=== PATIENT | male | born 1985 | race African-American/Black ===

== ENCOUNTER 2019-03-29 09:30 | Emergency (ER) | payer SELFPAY ==
[~2019-03-29] VITALS: Ht 172.7 cm; Wt 77.1 kg
[2019-03-29 09:33] VITALS: BP 117/80
[2019-03-29] MEDS ORDERED: NKM (09:40)
--- NOTE | 2019-03-29 09:43 | NUR ---
ED Nurse Note: PT FROM HOME WALKED IN DUE TO ABD. PAIN WITH DIARRHEA AND N/V SINCE TUESDAY. NO RECENT WEIGHT LOSS. AAO X4, AMBULATORY WITH NO ACTIVE VOMITING UPON ARRIVAL.
--- NOTE | 2019-03-29 10:05 | Emergency Room Report ---
History of Present Illness General Chief Complaint: Abdominal Pain Source: Patient, Significant Other Present Illness HPI Patient presents with 3 days of diarrhea, abdominal cramps and vomiting. He has been able to keep down Gatorade. He feels he is not dehydrated this time. Before taking the children to school he had to move his bowels 3 times this morning. He has crampy pain in his abdomen and 6/10. He felt feverish but had no documented fever. Denies vomiting blood or blood in the diarrhea. He thinks he might of eaten something unusual. His significant other is not ill. No upper respiratory symptoms. 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 Nursing Documentation: PMH: Agreed; PSxH: Agreed Nursing Documentation-PMH Past Medical History: No Stated History Review of Systems All Other Systems: negative except mentioned in HPI Physical Exam Vital Signs Date Time Temp Pulse Resp B/P (MAP) Pulse Ox O2 Delivery O2 Flow Rate FiO2 03/29/19 09:33 98.1 65 16 117/80 (92) 99 Room Air Sp02 EP Interpretation: reviewed, normal General Appearance: well appearing, no apparent distress, GCS 15 Head: normocephalic Eyes: bilateral eye normal inspection, bilateral eye PERRL ENT: moist mucus membranes Cardiovascular #1: regular rate, rhythm Gastrointestinal: normal inspection, normal bowel sounds, no guarding, no rebound, tenderness - Reported diffuse Genitourinary: no CVA tenderness Musculoskeletal: gait/station normal Neurologic: alert, oriented x3, grossly normal Psychiatric: mood/affect normal Skin: no rash Medical Decision Making Diagnostic Impression: Primary Impression: Gastroenteritis ER Course Patient presents with 3 days of intermittent vomiting and diarrhea. Differential includes food poisoning, gastroenteritis, diverticulitis amongst others. Discussed IV treatment with the patient and he feels that he is not dehydrated and does not need IV. Discussed symptomatic treatment with the patient. He has been keeping down clear liquids without difficulty. Abdomen is nonsurgical at this time. Patient given a dose of Zofran and loperamide. Discussed outpatient observation with the patient. Patient stable for outpatient observation and treatment. He was advised to follow-up with his private physician and to return if he is not doing well. Last Vital Signs Date Time Temp Pulse Resp B/P (MAP) Pulse Ox O2 Delivery O2 Flow Rate FiO2 03/29/19 10:16 98.5 72 16 122/79 100 Room Air Status: improved Disposition: HOME, SELF-CARE Condition: Improved Scripts Acetaminophen (Tylenol) 325 Mg Tablet 650 MG ORAL Q6H PRN for Prn Pain/Headache/Temp > 101, #20 TAB 0 Refills Prov: Abdifatah Patterson MD 03/29/19 Ondansetron Odt* (ZOFRAN ODT*) 4 Mg Tab.rapdis 4 MG BC EVERY 8 HOURS, #6 TAB 1 Refill Prov: Abdifatah Patterson MD 03/29/19 Loperamide Hcl (LOPERAMIDE) 2 Mg Tablet 2 MG PO Q6HR PRN for Diarrhea, #10 TAB Prov: Abdifatah Patterson MD 03/29/19 Abdifatah Patterson MD Mar 29, 2019 10:05
[2019-03-29] MEDS ORDERED: LOPERAMIDE2 M1 PO (10:08)
[2019-03-29] MEDS ORDERED: TYLENOL325 MG ORAL (10:08)
[2019-03-29] MEDS ORDERED: ONDANSETRON ODT4 MG BC (10:08)
[2019-03-29] MEDS ORDERED: Loperamide 2mg cap ORAL ONE (10:15)
[2019-03-29 10:16] VITALS: BP 122/79
--- NOTE | 2019-03-29 10:16 | NUR ---
ER DISCHARGE NOTE: Patient is cleared to be discharged per ERMD, pt is aox4, on room air, with stable vital signs. pt was given dc and prescription instructions, pt was able to verbalize understanding, pt id band removed. pt is able to ambulate with steady gait. pt took all belongings and left with his family member.
== END 2019-03-29 10:16 | disposition home or self-care (01) ==
LOC: EMR 10:10
DX: K52.9 Noninfective gastroenteritis and colitis, unspecified (principal)
CPT/HCPCS: 99282